=== PATIENT | male | born 1940 | race Caucasian/White ===

== ENCOUNTER 2017-03-23 22:56 | Emergency (ER) | payer BC ==
[2017-03-24] MEDS ORDERED: Diltiazem IV* 5 MG/ML 5 ML VIAL (for loading dose/IV Push) (25 MG) IV SLOW PU ONE (00:36)
[2017-03-24] MEDS ORDERED: NS 0.9% 1000 ML* 1,000 ML IV ONE (00:39)
[2017-03-24 01:19] LABS: Hematocrit 48 % (42-52); Hemoglobin 16.5 g/dl (14.0-18.0); Mean Corpuscular HGB Conc 35 g/dl (31-36); Mean Corpuscular Hemoglobin 33 pg (27-31); Mean Corpuscular Volume 94 fL (80-94); Mean Platelet Volume 7 um3 (7.4-10.4); Red Blood Count 5.03 10^6/ul (4.0-5.4); Red Cell Distribution Width 14 % (10.5-15); White Blood Count 4.2 10^3/ul (3.5-10.8)
[2017-03-24] MEDS ORDERED: Etomidate* 2 MG/ML 10 ML VIAL IV ONE (01:43)
[2017-03-24 01:54] LABS: Albumin 4.3 g/dL (3.2-5.2); BUN/Creatinine Ratio 21.4 (8-20); Calcium 9.8 mg/dL (8.6-10.3); EGFR African American 90.3 (>60); EGFR Non-African American 70.2 (>60); Globulin 2.4 g/dL (2-4); Potassium 4.2 mmol/L (3.5-5.0); Total Bilirubin 2.4 mg/dL (0.2-1.0); Total Protein 6.7 g/dL (6.4-8.9)
[2017-03-24 02:07] LABS: TSH (Thyroid Stimulating Horm) 3.4 mcIU/mL (0.34-5.60)
--- NOTE | 2017-03-24 03:53 | ED ---
Althea Garrido Alfonso, scribed for Abdulkadir Parker MD on 03/24/17 at 0034 . Palpitations / Dysrhythmia - HPI Summary HPI Summary: This patient is a 76 year old M presenting to [facility] accompanied by with a chief complaint of sudden onset fast and irregular palpitations since 2199 today. The patient rates the pain 0/10 in severity. Symptoms aggravated by nothing. Symptoms alleviated by nothing. Patient denies pain and SOB. He has known RBBB and PVCs. He was electrically cardioverted twice in the past, most recently in August. He takes Pradaxa for A-Fib. - History of Current Complaint Chief Complaint: EDDysrhythmPalp Hx Obtained From: Patient Onset/Duration: Sudden Onset, Lasting Minutes, Still Present Timing: Constant Character: Fast, Irregular Aggravating: Nothing Alleviating: Nothing Associated Signs & Symptoms: Negative - Allergy/Home Medications Allergies/Adverse Reactions: Allergies Allergy/AdvReac Type Severity Reaction Status Date / Time No Known Allergies Allergy Verified 03/24/17 00:34 PMH/Surg Hx/FS Hx/Imm Hx Endocrine/Hematology History: Denies: Hx Diabetes Cardiovascular History: Reports: Hx Atrial Fibrillation, Hx Hypertension - BORDERLINE, Other Cardiovascular Problems/Disorders - PERSISTANT ATRIAL FIBRILLATION Denies: Hx Angina, Hx Coronary Artery Disease, Hx Hypercholesterolemia, Hx Myocardial Infarction, Hx Valvular Heart Disease Respiratory History: Denies: Hx Asthma, Hx Chronic Obstructive Pulmonary Disease (COPD) History: Reports: Other Problems/Disorders - BPH DR. DERRICK CARNEY DONE Musculoskeletal History: Reports: Hx Arthritis - NECK, BILATERAL Sensory History: Reports: Hx Cataracts - SURGERY DONE TO BILAT EYES WITH ARLEO, Hx Contacts or Glasses - JUST FOR READING Denies: Hx Hearing Aid Opthamlomology History: Reports: Hx Cataracts - SURGERY DONE TO BILAT EYES WITH ARLEO, Hx Contacts or Glasses - JUST FOR READING - Surgical History Surgery Procedure, Year, and Place: 2009 TRANSURETHRAL RESECTION OF PROSTATE, [facility] [place]. TONSILECTOMY. BILAT CATARACT REMOVAL WITH LENS IMPLANTS [facility] Hx Anesthesia Reactions: No Infectious Disease History: No Infectious Disease History: Denies: Hx Clostridium Difficile, Hx Hepatitis, Hx Human Immunodeficiency Virus (HIV), Hx of Known/Suspected MRSA, Hx Shingles, Hx Tuberculosis, Hx Known/ Suspected VRE, Hx Known/Suspected VRSA, History Other Infectious Disease, Traveled Outside the [place] in Last 30 Days - Family History Known Family History: Positive: Other - Bladder cancer - Social History Alcohol Use: Daily Alcohol Amount: 1 glass wine Hx Substance Use: No Substance Use Type: Reports: None Hx Tobacco Use: Yes Smoking Status (MU): Former Smoker Type: Cigarettes Length of Time of Smoking/Using Tobacco: quit 50 years ago Have You Smoked in the Last Year: No Review of Systems Negative: Fever Positive: Palpitations Negative: Shortness Of Breath Positive: Other - Negative pain All Other Systems Reviewed And Are Negative: Yes Physical Exam - Summary Physical Exam Summary: Appearance: Well-appearing, Well-nourished Sin: Warm Eyes: Normal ENT: Normal Neck: Supple, nontender Respiratory: Clear to auscultation Cardiovascular: Tachycardia. No murmur. IRR, consistent with A-Fib. Normal distal, radial, and pedal pulses. Abdomen: Soft, nontender Bowel: Present Musculoskeletal: Normal, Strength/ROM Intact Neurological: Normal, A&Ox3 Psychiatric: Normal Triage Information Reviewed: Yes Vital Signs On Initial Exam: Initial Vitals Temp Pulse Resp BP Pulse Ox 97.7 F 72 14 167/72 98 03/23/17 23:01 03/23/17 23:01 03/23/17 23:01 03/23/17 23:01 03/23/17 23:01 Vital Signs Reviewed: Yes Diagnostics - Vital Signs Vital Signs Temp Pulse Resp BP Pulse Ox 03/23/17 23:01 97.7 F 72 14 167/72 98 - Laboratory Lab Results: Lab Results 03/24/17 03/24/17 03/24/17 Range/Units 01:05 01:05 01:05 WBC 4.2 (3.5-10.8) 10^3/ul RBC 5.03 (4.0-5.4) 10^6/ul Hgb 16.5 (14.0-18.0) g/dl Hct 48 (42-52) % MCV 94 (80-94) fL MCH 33 H (27-31) pg MCHC 35 (31-36) g/dl RDW 14 (10.5-15) % Plt Count 138 L (150-450) 10^3/ul MPV 7 L (7.4-10.4) um3 Neut % (Auto) 46.5 (38-83) % Lymph % (Auto) 35.1 (25-47) % [place] % (Auto) 13.3 H (1-9) % Eos % (Auto) 4.1 (0-6) % Baso % (Auto) 1.0 (0-2) % Absolute Neuts (auto) 1.9 (1.5-7.7) 10^3/ul Absolute Lymphs (auto) 1.5 (1.0-4.8) 10^3/ul Absolute Monos (auto) 0.6 (0-0.8) 10^3/ul Absolute Eos (auto) 0.2 (0-0.6) 10^3/ul Absolute Basos (auto) 0 (0-0.2) 10^3/ul Absolute Nucleated RBC 0 10^3/ul Nucleated RBC % 0.1 INR (Anticoag Therapy) 1.02 (0.89-1.11) APTT 50.0 H (26.0-36.3) seconds Sodium 141 (133-145) mmol/L Potassium 4.2 (3.5-5.0) mmol/L Chloride 106 (101-111) mmol/L Carbon Dioxide 31 (22-32) mmol/L Anion Gap 4 (2-11) mmol/L BUN 22 (6-24) mg/dL Creatinine 1.03 (0.67-1.17) mg/dL Est GFR ( Amer) 90.3 (>60) Est GFR (Non-Af Amer) 70.2 (>60) BUN/Creatinine Ratio 21.4 H (8-20) Glucose 104 H (70-100) mg/dL Lactic Acid (0.5-2.0) mmol/L Calcium 9.8 (8.6-10.3) mg/dL Magnesium 2.0 (1.9-2.7) mg/dL Total Bilirubin 2.40 H (0.2-1.0) mg/dL AST 31 (13-39) U/L ALT 20 (7-52) U/L Alkaline Phosphatase 54 (34-104) U/L Troponin I 0.00 (<0.04) ng/mL Total Protein 6.7 (6.4-8.9) g/dL Albumin 4.3 (3.2-5.2) g/dL Globulin 2.4 (2-4) g/dL Albumin/Globulin Ratio 1.8 (1-3) TSH 3.40 (0.34-5.60) mcIU/mL 03/24/17 Range/Units 01:05 WBC (3.5-10.8) 10^3/ul RBC (4.0-5.4) 10^6/ul Hgb (14.0-18.0) g/dl Hct (42-52) % MCV (80-94) fL MCH (27-31) pg MCHC (31-36) g/dl RDW (10.5-15) % Plt Count (150-450) 10^3/ul MPV (7.4-10.4) um3 Neut % (Auto) (38-83) % Lymph % (Auto) (25-47) % [place] % (Auto) (1-9) % Eos % (Auto) (0-6) % Baso % (Auto) (0-2) % Absolute Neuts (auto) (1.5-7.7) 10^3/ul Absolute Lymphs (auto) (1.0-4.8) 10^3/ul Absolute Monos (auto) (0-0.8) 10^3/ul Absolute Eos (auto) (0-0.6) 10^3/ul Absolute Basos (auto) (0-0.2) 10^3/ul Absolute Nucleated RBC 10^3/ul Nucleated RBC % INR (Anticoag Therapy) (0.89-1.11) APTT (26.0-36.3) seconds Sodium (133-145) mmol/L Potassium (3.5-5.0) mmol/L Chloride (101-111) mmol/L Carbon Dioxide (22-32) mmol/L Anion Gap (2-11) mmol/L BUN (6-24) mg/dL Creatinine (0.67-1.17) mg/dL Est GFR ( Amer) (>60) Est GFR (Non-Af Amer) (>60) BUN/Creatinine Ratio (8-20) Glucose (70-100) mg/dL Lactic Acid 0.7 (0.5-2.0) mmol/L Calcium (8.6-10.3) mg/dL Magnesium (1.9-2.7) mg/dL Total Bilirubin (0.2-1.0) mg/dL AST (13-39) U/L ALT (7-52) U/L Alkaline Phosphatase (34-104) U/L Troponin I (<0.04) ng/mL Total Protein (6.4-8.9) g/dL Albumin (3.2-5.2) g/dL Globulin (2-4) g/dL Albumin/Globulin Ratio (1-3) TSH (0.34-5.60) mcIU/mL Result Diagrams: 03/24/17 01:05 03/24/17 01:05 Lab Statement: Any lab studies that have been ordered have been reviewed, and results considered in the medical decision making process. - Radiology CXR Radiology Interpretation Completed By: ED Physician, Radiologist - Pending offical interpretation at this time. - EKG 2315 Cardiac Rate: NL EKG Rhythm: Atrial Fibrillation - BPM 91 EKG Interpretation: RBBB 0225 Cardiac Rate: Bradycardia EKG Rhythm: Sinus Bradycardia - BPM 53 EKG Interpretation: S/P cardioversion. Probable left atrial enlargment Re-Evaluation - Re-Evaluation First Eval Re-Evaluation Time: 01:26 Comment: Reviewed lab results. Reviewed risk and benefits of an electrical cardioversion. Course/Dx - Course Assessment/Plan: we decided together with pt that given sudden onset of sxs and prior successful cardioversions, would be in pts best interest for elective cardioversion. pt improved after successful cardioversion, moravian of nsr, neurologically intact, no complications during sedation/cardioversion .ambulating normally, instucted pt and family to fu with cardiology. agrees to and understnads dc instructions . - Diagnoses Provider Diagnoses: Atrial fibrillation - Critical Care Time Critical Care Time: 30-74 min - 30 min of crit care time for conversations w patient and family, nursing, administering meds, monitoring clinical effect Discharge - Discharge Plan Condition: Improved Disposition: HOME Patient Education Materials: A-fib (Atrial Fibrillation) (ED) Referrals: Thomas Howell MD [Primary Care Provider] - Tammy Li MD [Medical Doctor] - Additional Instructions: PLEASE MAKE AN APPOINTMENT FIRST THING IN THE MORNING TO BE SEEN BY YOUR FLORIST WITHIN 1 WEEK PLEASE RETURN TO THE EMERGENCY ROOM IF YOU HAVE ANY WORSENING OR CONCERNING SYMPTOMS The documentation as recorded by the Althea mejia,Seng accurately reflects the service I personally performed and the decisions made by me, Abdulkadir Parker MD.
[2017-03-24 04:14] VITALS: BP 124/77
--- NOTE | 2017-03-24 10:06 | RAD ---
INDICATION: A. Fib COMPARISON: Chest x-ray dated June 05, 2014 TECHNIQUE: Single AP portable view of the chest was obtained. FINDINGS: Image quality is compromised due to the relative inferiority of a portable chest x-ray. The heart and mediastinum exhibit normal size and contour. The lungs are grossly clear. There is no evidence of a large pleural effusion. Visualized bones are normal for the patient's age. IMPRESSION: No radiographic evidence for acute cardiopulmonary abnormality on this portable chest x-ray.
== END 2017-03-24 04:14 | disposition home or self-care (01) ==
LOC: ED 22:56
DX: I48.91 Unspecified atrial fibrillation (principal)
CPT/HCPCS: 36415; 71010; 80053; 83605; 83735; 84443; 84484; 85025; 85610; 85730; 93005; 96374; 99284

== ENCOUNTER 2017-10-30 08:44 | Emergency (ER) | payer BC ==
[2017-10-30 08:58] VITALS: BP 153/76
[2017-10-30] MEDS ORDERED: Lidocaine 2% W/EPI 1:100,000* 20 ML MDV INJ ONE (09:37)
--- NOTE | 2017-11-05 15:01 | UC ---
Angela Garrido Rebecca, scribed for Christina Vargas MD on 10/30/17 at 0921 . Upper Extremity HPI - HPI Summary HPI Summary: Pt is a 77 y/o M who presents to [facility] c/o R elbow laceration s/p fall. [employer], while in the locker room at his gym he went to reach for his bag and fell backwards, hitting his right elbow. Negative LOC and negative head trauma. Associated pain is moderate, ranked 4/10 on triage. Denies any other injuries. Is on Pradaxa for A Fib without any other blood thinners. Believes his last Tetanus shot was within 10 years, but he is unsure. No other injuries Pt's medications reviewed this visit. - History of Current Complaint Chief Complaint: UCLaceration Stated Complaint: ELBOW LACERATION Time Seen by Provider: 10/30/17 09:20 Hx Obtained From: Patient Onset/Duration: Still Present Severity Currently: Moderate Pain Intensity: 4 Pain Scale Used: 0-10 Numeric Location Of Pain: Is Discrete @ - R elbow Aggravating Factor(s): Nothing Alleviating Factor(s): Nothing Associated Signs And Symptoms: Positive: Other - Laceration - Allergies/Home Medications Allergies/Adverse Reactions: Allergies Allergy/AdvReac Type Severity Reaction Status Date / Time No Known Allergies Allergy Verified 09/06/17 09:51 PMH/Surg Hx/FS Hx/Imm Hx - Additional Past Medical History Additional PMH: NEGATIVE PMHx: DM, COPD, Thyroid disease Previously Healthy: Yes Cardiovascular History: Hypertension, Atrial Fibrillation - Surgical History Surgical History: None Surgery Procedure, Year, and Place: 2009 TRANSURETHRAL RESECTION OF PROSTATE, [facility]. TONSILECTOMY. BILAT CATARACT REMOVAL WITH LENS IMPLANTS [facility]. CARDIOVERSION FOR AFIB - Family History Known Family History: Positive: Other - Bladder cancer - Social History Occupation: Retired Lives: With Family Alcohol Use: Daily Alcohol Amount: 1 GLASS OF WINE Substance Use Type: None Smoking Status (MU): Former Smoker Type: Cigarettes Length of Time of Smoking/Using Tobacco: quit 50 years ago Have You Smoked in the Last Year: No When Did the Patient Quit Smoking/Using Tobacco: QUIT 50 YEARS AGO Review of Systems Constitutional: Negative Skin: Other - right lateral laceration Eyes: Negative ENT: Negative Respiratory: Negative Cardiovascular: Negative Gastrointestinal: Negative Genitourinary: Negative Motor: Negative Neurovascular: Negative Musculoskeletal: Other: - R elbow laceration and pain Neurological: Negative Psychological: Negative All Other Systems Reviewed And Are Negative: Yes - Comments Additional Review of Systems Comments: NEGATIVE: LOC Physical Exam - Summary Physical Exam Summary: Vital Signs Reviewed: Yes A+Ox3, no distress Eyes: Conjunctiva Clear ENT: Hearing grossly normal neck: supple Respiratory: Positive: No respiratory distress, No accessory muscle use Cardiovascular: skin color reflect adequate perfusion Musculoskeletal Exam: GERBER x 4 without difficulty full flex.ext elbow, pronate/ supinate Neurological: Positive: Alert, ambulatory without difficulty Psychological: Positive: Normal Response To Family Skin: Positive: no rash, no ecchymosis 3 cm laceration right elbow bleeding controlled Triage Information Reviewed: Yes Vital Signs: Initial Vital Signs Temp 98.5 F 10/30/17 08:51 Pulse 63 10/30/17 08:51 Resp 18 10/30/17 08:51 BP 153/76 10/30/17 08:51 Pulse Ox 98 10/30/17 08:51 Procedures - Procedure Summary Procedure Summary: Verbal permission to treat patient. Time out completed with her Patient prepped in routine sterile fashion. Wound copiously irrigated and closed with good approximation. Patient tolerated well. The with patient wound care With patient signs and symptoms return. - Laceration/Wound Repair right elbow Location: upper extremity Description: Linear Anesthesia: Local, 1.0%, Epi Length, Depth and Shape: 3cm Betadine Prep?: No Irrigated w/ Saline (ccs): 500 - pressure syringe Laceration/Wound Explored: clean Closure: Single Layer - 5 simple interrupted Debridement: minimal Suture Type: Nylon - 4-0 Layer Closure?: No Sterile Dressing Applied?: Yes Upper Extremity Course/Dx - Course Course Of Treatment: Pt medications reviewed this visit. Blood pressure noted and patient informed to follow up with PCP. Patient with mechanical fall. Patient sustained laceration of his right elbow. Patient did not strike head. No other injuries. Patient right-hand dominant. Patient with full range of motion of the elbow. Wound sutured. Reviewed with patient wound care. Antibiotic. Tetanus up-to-date. Return precautions. Patient comfortable in agreement with plan. - Differential Dx/Diagnosis Provider Diagnoses: elbow laceration Discharge - Sign-Out/Discharge Documenting (check all that apply): Discharge/Admit/Transfer - Discharge - Discharge Plan Condition: Stable Disposition: HOME Prescriptions: Cephalexin CAP* [Keflex 500 CAP*] 500 mg PO TID #21 cap Patient Education Materials: Laceration (ED) Referrals: Thomas Howell MD [Primary Care Provider] - Additional Instructions: - your stitches should come out in 9-10 days - you can return here, go to your Doctor or any urgent care center - Okay to take Tylenol every 6hours as needed for pain -Anticipate increased discomfort over the next several hours as the numbing medication wears off -Keep your wound clean and dry - no soaking for 24 hours. Then, okay for wound to get wet - pat dry, don't rub -Take antibiotics as prescribed until gone -Apply a thin layer of antibiotic ointment (neosporin, polysporin) 2-3 times a day -When you have a cut, you will have a scar. To minimize scar formation -Keep your wound clean - monitor for signs of infection - reddness, red streaking, odor, green drainage -Once sutures out - keep your wound out of direct sun (wear a hat or sun screen ) - it may take up to 8 months for your scar to reach its final state - Contact your doctor or return here with questions or concerns - Billing Disposition and Condition Condition: STABLE Disposition: Home The documentation as recorded by the Angela mejia Rebecca accurately reflects the service I personally performed and the decisions made by , Christina Vargas MD.
== END 2017-10-30 10:36 | disposition home or self-care (01) ==
LOC: UCEAST 08:44
DX: S51.011A Laceration without foreign body of right elbow, initial encounter (principal); W18.09XA Striking against other object with subsequent fall, initial encounter; Y93.89 Activity, other specified; Y92.39 Other specified sports and athletic area as the place of occurrence of the external cause; I10 Essential (primary) hypertension; I48.91 Unspecified atrial fibrillation; Z80.52 Family history of malignant neoplasm of bladder; Z87.891 Personal history of nicotine dependence
CPT/HCPCS: 12002; 99212; G0463

== ENCOUNTER 2017-11-08 11:20 | Emergency (ER) | payer BC ==
[2017-11-08 11:29] VITALS: BP 122/70
--- NOTE | 2017-11-08 11:54 | UC ---
Angela Garrido Rebecca, scribed for Jose Angel Pineda MD on 11/08/17 at 1140 . Laceration HPI - HPI Summary HPI Summary: Pt is a 77 y/o M who presents to [facility] for suture removal. He was seen on 10/30 (9 days ago) and had 5 sutures placed in the right elbow. He has had no problems with the wound since last being seen. Denies any fever or chills and is in no pain. - History Of Current Complaint Chief Complaint: UCSkin Stated Complaint: STITCHES REMOVED Time Seen by Provider: 11/08/17 11:32 Hx Obtained From: Patient Laceration Location: Elbow - Right Onset/Duration: Still Present - Sutures need to be removed Pain Intensity: 0 Pain Scale Used: 0-10 Numeric Aggravating Factors: Nothing Related History: Other: - Sutured on 10/30 (9 days ago) - Allergies/Home Medications Allergies/Adverse Reactions: Allergies Allergy/AdvReac Type Severity Reaction Status Date / Time No Known Allergies Allergy Verified 11/08/17 11:30 PMH/Surg Hx/FS Hx/Imm Hx - Additional Past Medical History Additional PMH: NEGATIVE PMHx: DM, COPD, Thyroid disease - Surgical History Surgical History: Yes Surgery Procedure, Year, and Place: 2008 TRANSURETHRAL RESECTION OF PROSTATE, [facility]. TONSILECTOMY. BILAT CATARACT REMOVAL WITH LENS IMPLANTS [facility]. CARDIOVERSION FOR AFIB - Family History Known Family History: Positive: Other - Bladder cancer - Social History Alcohol Use: Daily Alcohol Amount: 1 drink/day Substance Use Type: None Smoking Status (MU): Former Smoker Type: Cigarettes Length of Time of Smoking/Using Tobacco: quit 50 years ago Have You Smoked in the Last Year: No When Did the Patient Quit Smoking/Using Tobacco: QUIT 50 YEARS AGO - Immunization History Most Recent Tetanus Shot: 06/29/17 Review of Systems Constitutional: Negative Skin: Other - Sutures in the right elbow Eyes: Negative ENT: Negative Respiratory: Negative Cardiovascular: Negative Gastrointestinal: Negative Genitourinary: Negative Motor: Negative Neurovascular: Negative Musculoskeletal: Negative Neurological: Negative Psychological: Negative All Other Systems Reviewed And Are Negative: Yes - Comments Additional Review of Systems Comments: NEGATIVE: Fever, chills, pain Physical Exam - Summary Physical Exam Summary: Appearance: Well appearing, no pain distress Skin: warm, dry, reflects adequate perfusion, he has a healing wound just distal to the right elbow with nylon sutures in place Head/face: normal Eyes: EOMI, NIKI ENT: normal Neck: supple, non-tender Respiratory: CTA, breath sounds present Cardiovascular: RRR, pulses symmetrical Musculoskeletal: normal, strength/ROM intact Neuro: normal, sensory motor intact, A&Ox3 Triage Information Reviewed: Yes Vital Signs: Initial Vital Signs Temp 98.4 F 11/08/17 11:25 Pulse 47 11/08/17 11:25 Resp 15 11/08/17 11:25 BP 122/70 11/08/17 11:25 Pulse Ox 100 11/08/17 11:25 Vital Signs Reviewed: Yes Laceration Course/Dx - Course/Dx Course Of Treatment: 5 Ethibond sutures removed without incident. Dressed with a Band-Aid - Differential Dx - Laceration/Wound Provider Diagnoses: Suture removal, wound recheck Discharge - Sign-Out/Discharge Documenting (check all that apply): Discharge/Admit/Transfer - Discharge - Discharge Plan Condition: Good Disposition: HOME Patient Education Materials: Stitches Removal (ED) Referrals: Thomas Howell MD [Primary Care Provider] - Additional Instructions: Return if worse or other concerns. Dress with bacitracin ointment twice a day. - Billing Disposition and Condition Condition: GOOD Disposition: Home The documentation as recorded by the Angela mejia Rebecca accurately reflects the service I personally performed and the decisions made by , Jose Angel Pineda MD.
== END 2017-11-08 11:57 | disposition home or self-care (01) ==
LOC: UCEAST 11:20
DX: S51.011D Laceration without foreign body of right elbow, subsequent encounter (principal); X58.XXXD Exposure to other specified factors, subsequent encounter; Z80.52 Family history of malignant neoplasm of bladder; Z87.891 Personal history of nicotine dependence

== ENCOUNTER 2019-02-09 10:29 | Emergency (ER) | payer BC ==
[2019-02-09 10:42] VITALS: BP 158/91
--- NOTE | 2019-02-09 11:08 | UC ---
Skin Complaint HPI - HPI Summary HPI Summary: 78-year-old male presents with concerns of infection of a skin biopsy site to his left hand. States he had a biopsy of a lesion to his left hand performed at [facility] on 01/31/2019. On 02/05/2019 he started noticing some redness and swelling of the incision site and had it evaluated by dermatology the next day but they did not feel that it was infected at that time. States he has continued to have increased redness and swelling to the back of the hand. Mild tenderness to touch. Denies fever, chills, numbness, or tingling. - History of Current Complaint Chief Complaint: UCSkin Time Seen by Provider: 02/09/19 10:45 Stated Complaint: SKIN COMPLAINT Hx Obtained From: Patient Pain Intensity: 5 - Allergy/Home Medications Allergies/Adverse Reactions: Allergies Allergy/AdvReac Type Severity Reaction Status Date / Time No Known Allergies Allergy Verified 02/09/19 10:42 PMH/Surg Hx/FS Hx/Imm Hx Cardiovascular History: Hypertension, Atrial Fibrillation - Surgical History Surgical History: Yes Surgery Procedure, Year, and Place: 2009 TRANSURETHRAL RESECTION OF PROSTATE, [facility]. TONSILECTOMY. BILAT CATARACT REMOVAL WITH LENS IMPLANTS [facility]. CARDIOVERSION FOR AFIB - Family History Known Family History: Positive: Other - Bladder cancer - Social History Occupation: Retired Lives: With Family Alcohol Use: Weekly Alcohol Amount: 7/wk Substance Use Type: None Smoking Status (MU): Former Smoker Type: Cigarettes Length of Time of Smoking/Using Tobacco: quit 50 years ago Have You Smoked in the Last Year: No When Did the Patient Quit Smoking/Using Tobacco: QUIT 50 YEARS AGO - Immunization History Most Recent Tetanus Shot: 06/29/17 Review of Systems All Other Systems Reviewed And Are Negative: Yes Constitutional: Negative: Fever, Chills Skin: Positive: Other - See HPI Respiratory: Positive: Negative Cardiovascular: Positive: Negative Gastrointestinal: Positive: Negative Genitourinary: Positive: Negative Motor: Negative: Weakness Neurovascular: Negative: Decreased Sensation Musculoskeletal: Negative: Arthralgia Neurological: Positive: Negative Is Patient Immunocompromised?: No Physical Exam - Summary Physical Exam Summary: GENERAL APPEARANCE: Well developed, well nourished, alert and cooperative, and appears to be in no acute distress. CARDIAC: Normal S1 and S2. No S3, S4 or murmurs. Rhythm is regular. There is no peripheral edema, cyanosis or pallor. Extremities are warm and well perfused. Capillary refill is less than 2 seconds. Peripheral pulses intact. LUNGS: Clear to auscultation without rales, rhonchi, wheezing or diminished breath sounds. ABDOMEN: Positive bowel sounds. Soft, nondistended, nontender. No guarding or rebound. No masses or hepatosplenomegally. MUSKULOSKELETAL: No joint erythema or tenderness. Normal muscular development. Normal gait. EXTREMITIES: Small healing surgical laceration to the posterior left hand with single intact suture, 1 cm area of fluctuance beneath the incision with erythema extending from the incision site involving the entire posterior left hand with mild edema. No induration noted. Flexion of fingers slightly limited due to the edema. Circulation and sensation intact. SKIN: Skin normal color, texture and turgor with no lesions or eruptions. Triage Information Reviewed: Yes Vital Signs: Initial Vital Signs Temp 96.8 F 02/09/19 10:37 Pulse 46 02/09/19 10:37 Resp 18 02/09/19 10:37 BP 158/91 02/09/19 10:37 Pulse Ox 100 02/09/19 10:37 Vital Signs Reviewed: Yes Course/Dx - Course Course Of Treatment: 78-year-old male presents with concerns of infection of a skin biopsy site to his left hand. States he had a biopsy of a lesion to his left hand performed at [facility] on 01/31/2019. On 02/05/2019 he started noticing some redness and swelling of the incision site and had it evaluated by dermatology the next day but they did not feel that it was infected at that time. States he has continued to have increased redness and swelling to the back of the hand. Mild tenderness to touch. Denies fever, chills, numbness, or tingling. Afebrile. Hypertensive otherwise vital signs stable. Patient had a small healing surgical laceration to the posterior left hand with single intact suture, 1 cm area of fluctuance beneath the incision with erythema extending from the incision site involving the entire posterior left hand with mild edema. No induration noted. Flexion of fingers slightly limited due to the edema. Circulation and sensation intact. I removed the suture and was able to express some purulent drainage from the incision site. A wound culture was obtained and sent. A dressing was applied by the RN. I am placing the patient on cephalexin 500 mg 3 times a day 7 days pending the culture results. He is to follow-up with dermatology in 2-3 days for recheck of symptoms. Anticipatory guidance and warning symptoms are reviewed with the patient. Verbalizes understanding and agrees with plan of care. - Differential Diagnoses - Skin Complaint Differential Diagnoses: Local Allergic Reaction, MRSA, Other - wound infection - Diagnoses Provider Diagnosis: Cellulitis of left hand, S/P skin biopsy Discharge ED - Sign-Out/Discharge Documenting (check all that apply): Patient Departure All imaging exams completed and their final reports reviewed: No Studies - Discharge Plan Condition: Stable Disposition: HOME Prescriptions: cephALEXin [Keflex] 500 mg PO TID #21 capsule Patient Education Materials: Cellulitis (ED) Referrals: Thomas Howell MD [Primary Care Provider] - Additional Instructions: You have an infection of the skin biopsy site on your left hand with an infection of the surrounding tissues called cellulitis. We will start you on an antibiotic for the infection. Take cephalexin 500 mg 1 capsule 3 times a day for 7 days. We have sent a wound culture to the lab to see if we can identify the bacteria that is causing the infection and to make sure the antibiotic is appropriate to treat the infection. Follow-up with your triage assistant in the next 2-3 days for recheck of your symptoms. Call Sunday morning for an appointment. Seek immediate medical attention in the emergency room if you develop a fever greater than 100.5 F, the redness in your hand rapidly spreads, if increased swelling of the hand, severe pain that is not managed with [id number] pain medication, he lose function of the hand, or have any worsening of symptoms. - Billing Disposition and Condition Condition: STABLE Disposition: Home
== END 2019-02-09 11:20 | disposition home or self-care (01) ==
LOC: UCEAST 10:29
DX: T81.49XA Infection following a procedure, other surgical site, initial encounter (principal); L03.114 Cellulitis of left upper limb; Z48.02 Encounter for removal of sutures; I10 Essential (primary) hypertension; Z87.891 Personal history of nicotine dependence; Y84.8 Other medical procedures as the cause of abnormal reaction of the patient, or of later complication, without mention of misadventure at the time of the procedure
CPT/HCPCS: 87070; 87077; 87186; 87205; 99212; G0463

== ENCOUNTER 2021-10-02 16:44 | Inpatient (IN) ==
[2021-10-02 17:42] LABS: ABS Lymphocytes 0.6 10^3/ul (1.0-4.8); ABS Monocytes 0.4 10^3/ul (0-0.8); ABS Neutrophils 6.7 10^3/ul (1.5-7.7); Eosinophil % 0.2 %; Hematocrit 42 % (42-52); Hemoglobin 14.5 g/dL (14.0-18.0); Lymphocyte % 8.3 %; Mean Corpuscular HGB Conc 35 g/dL (31-36); Mean Corpuscular Hemoglobin 32 pg (27-31); Mean Corpuscular Volume 91 fL (80-94); Mean Platelet Volume 8.3 fL (7.4-10.4); Platelet Count 186 10^3/uL (150-450); Red Blood Count 4.55 10^6 /uL (4.18-5.48); Red Cell Distribution Width 14 % (10-15); White Blood Count 7.7 10^3/uL (3.5-10.8)
[2021-10-02 17:50] LABS: Activated Partial Thrombo Time 35.9 seconds (26.0-38.0); INR 1.77 (0.86-1.15)
[2021-10-02 18:03] LABS: High Sens Troponin Baseline 12 pg/mL (<20)
[2021-10-02 18:29] LABS: ALT 63 U/L (7-52); Albumin 3.2 g/dL (3.2-5.2); Albumin/Globulin Ratio 1.5 (1-3); Alkaline Phosphatase 91 U/L (35-149); Blood Urea Nitrogen 25 mg/dL (6-24); C Reactive Protein 131.08 mg/L (<8.01); CO2 Carbon Dioxide 28 mmol/L (22-32); Calcium 8.3 mg/dL (8.6-10.3); Chloride 98 mmol/L (101-111); Globulin 2.2 g/dL (2-4); Glucose 132 mg/dL (70-100); Sodium 131 mmol/L (135-145); Total Protein 5.4 g/dL (6.4-8.9); eGFR CKD-EPI 86.1 (>60)
[2021-10-02] MEDS ORDERED: Lactated Ringers 1000 ml BAG 1,000 ML IV ONE (18:43)
[2021-10-02 18:48] LABS: Urine Appearance Cloudy; Urine Bilirubin Negative (Negative); Urine Blood Negative (Negative); Urine Color Amber; Urine Glucose Negative (Negative); Urine Ketones Negative (Negative); Urine Nitrite Negative (Negative); Urine Protein 1+(30 mg/dL) (Negative); Urine Specific Gravity 1.025 (1.002-1.030); Urine Urobilinogen Positive (Negative)
[2021-10-02 18:49] LABS: Anion Gap 5 mmol/L (2-11)
[2021-10-02 18:50] LABS: Urine Bacteria Absent (Absent); Urine Red Blood Cell 3+(>10/hpf) (Absent); Urine Squamous Epithelial Cell Present (Absent); Urine White Blood Cell Trace(0-5/hpf) (Absent)
[2021-10-02 19:05] LABS: High Sensitivity Troponin 1 Hr 11 pg/mL (<20)
[2021-10-02] MEDS ORDERED: Iohexol 300 (CONTRAST) 10 ML SDV IV ONE (19:56)
[2021-10-02 20:41] LABS: PSA Screening Total 0.554 ng/mL (0-4.000)
[2021-10-02] MEDS ORDERED: cefTRIAXone 1 gm/50 mL D5W 1 GM/50 ML BAG IV ONE (21:02)
[2021-10-02] MEDS ORDERED: NS 0.9% 500 ml BAG 500 ML IV ONE (21:02)
[2021-10-02 21:52] LABS: Potassium Redraw 3.5 mmol/L (3.5-5.0)
[2021-10-02 21:56] LABS: RBC Parasite Smear No Parasites Seen (No Parasite)
[2021-10-02 23:22] LABS: Magnesium 1.7 mg/dL (1.9-2.7)
[2021-10-02] MEDS ORDERED: Magnesium Sulfate IV 3 GM in NS 0.9% 100 ml BAG 100 ML IVPB ONE (23:29)
[2021-10-02] MEDS ORDERED: Lactated Ringers 500 ml BAG 500 ML IV ONE (23:32)
[2021-10-02] MEDS ORDERED: Magnesium Sulfate 1 GM IV 1 GM/100 ML BAG IV ONE (23:45)
[2021-10-03] MEDS ORDERED: Magnesium Sulfate 2 GM IV (Premix) IVPB ONE (00:15)
[2021-10-03 06:39] LABS: Hematocrit 41 % (42-52); Hemoglobin 14.4 g/dL (14.0-18.0); Mean Corpuscular HGB Conc 35 g/dL (31-36); Mean Corpuscular Hemoglobin 32 pg (27-31); Mean Corpuscular Volume 93 fL (80-94); Mean Platelet Volume 7.6 fL (7.4-10.4); Platelet Count 190 10^3/uL (150-450); Red Blood Count 4.45 10^6 /uL (4.18-5.48); Red Cell Distribution Width 14 % (10-15); White Blood Count 9.1 10^3/uL (3.5-10.8)
[2021-10-03 07:13] LABS: Calcium 8.3 mg/dL (8.6-10.3); Magnesium 2.2 mg/dL (1.9-2.7); Potassium 3.8 mmol/L (3.5-5.0); eGFR CKD-EPI 83.6 (>60)
[2021-10-03 07:21] LABS: PSA Screening Total 0.535 ng/mL (0-4.000)
[2021-10-03 07:41] LABS: ABS Lymphocytes 0.8 10^3/ul (1.0-4.8); ABS Monocytes 0.5 10^3/ul (0-0.8); ABS Neutrophils 7.8 10^3/ul (1.5-7.7); Eosinophil % 0.1 %; Lymphocyte % 8.4 %
[2021-10-03] MEDS: DOXYcycline 100 MG in NS 0.9% 250 ml 250 ML IVPB SCH ×2 (10:53→19:45)
[2021-10-03] MEDS ORDERED: cefTRIAXone 1 gm/50 mL D5W 1 GM/50 ML BAG IV SCH (21:00)
[2021-10-04 06:12] LABS: ABS Eosinophils 0.1 10^3/ul (0-0.6); ABS Lymphocytes 1.4 10^3/ul (1.0-4.8); ABS Monocytes 0.7 10^3/ul (0-0.8); ABS Neutrophils 5.2 10^3/ul (1.5-7.7); Eosinophil % 1.1 %; Hematocrit 41 % (42-52); Hemoglobin 14.2 g/dL (14.0-18.0); Mean Corpuscular HGB Conc 35 g/dL (31-36); Mean Corpuscular Hemoglobin 32 pg (27-31); Mean Corpuscular Volume 92 fL (80-94); Mean Platelet Volume 7.6 fL (7.4-10.4); Nucleated Red Blood Cells % 0.2; Platelet Count 189 10^3/uL (150-450); Red Blood Count 4.43 10^6 /uL (4.18-5.48); Red Cell Distribution Width 14 % (10-15); White Blood Count 7.4 10^3/uL (3.5-10.8)
[2021-10-04 06:32] LABS: Albumin 2.6 g/dL (3.2-5.2); Albumin/Globulin Ratio 1.1 (1-3); C Reactive Protein 149.13 mg/L (<8.01); Calcium 8.2 mg/dL (8.6-10.3); Globulin 2.4 g/dL (2-4); Magnesium 2.1 mg/dL (1.9-2.7); Potassium 3.4 mmol/L (3.5-5.0); eGFR CKD-EPI 87.3 (>60)
[2021-10-04] MEDS: DOXYcycline 100 MG in NS 0.9% 250 ml 250 ML IVPB SCH ×2 (10:50→21:46)
[2021-10-04] MEDS: KCL 20 MEQ/100 ML IVPREMIX 20 MEQ/100 ML BAG IV SCH ×2 (12:31→15:52)
[2021-10-05 06:11] LABS: ABS Eosinophils 0.1 10^3/ul (0-0.6); ABS Lymphocytes 1.6 10^3/ul (1.0-4.8); ABS Monocytes 0.6 10^3/ul (0-0.8); ABS Neutrophils 2.9 10^3/ul (1.5-7.7); Eosinophil % 2.5 %; Hematocrit 42 % (42-52); Hemoglobin 14.3 g/dL (14.0-18.0); Mean Corpuscular HGB Conc 34 g/dL (31-36); Mean Corpuscular Hemoglobin 32 pg (27-31); Mean Corpuscular Volume 93 fL (80-94); Mean Platelet Volume 7.1 fL (7.4-10.4); Nucleated Red Blood Cells % 0.1; Platelet Count 253 10^3/uL (150-450); Red Blood Count 4.49 10^6 /uL (4.18-5.48); Red Cell Distribution Width 14 % (10-15); White Blood Count 5.2 10^3/uL (3.5-10.8)
[2021-10-05 06:41] LABS: Calcium 8.3 mg/dL (8.6-10.3); Magnesium 1.9 mg/dL (1.9-2.7); Potassium 3.8 mmol/L (3.5-5.0); eGFR CKD-EPI 84.7 (>60)
[2021-10-05] MEDS: DOXYcycline 100 MG in NS 0.9% 250 ml 250 ML IVPB SCH (09:41)
[2021-10-05 12:03] VITALS: BP 142/95
[2021-10-06 20:36] LABS: Anaplasma phagocytophilum Positive (Negative); B. miyamotoi PCR, B Negative (Negative); Babesia divergens/MO-1 Negative (Negative); Babesia ducani Negative (Negative); Ehrlichia chaffeensis Negative (Negative); Ehrlichia ewingii/canis Negative (Negative); Ehrlichia muris eauclairensis Negative (Negative)
[2021-10-07 00:29] LABS: IgG Immunoblot Positive (Negative); IgM Immunoblot Positive (Negative)
== END 2021-10-05 13:54 | disposition home or self-care (01) | DRG 720 ==
LOC: ED 16:44 → EDHOLD 23:20 → SUATTDRO 23:20 → EDHOLD 10-03 01:26 → MEDTELE 10-03 02:14
PROVIDERS: ADMIT Internal Medicine; ATTEND Internal Medicine